=== PATIENT | female | born 1955 | race Caucasian/White ===

== ENCOUNTER 2021-07-06 10:30 | Outpatient (REF) | payer MEDICARE, SELFPAY ==
[2021-07-06 12:36] LABS: Alanine Aminotransferase 45 U/L (0-31); Anion Gap 13 (12-20); Aspartate Amino Transferase 29 U/L (5-31); Blood Urea Nitrogen 24 mg/dL (9-16); Carbon Dioxide 26 mmol/L (22-29); Chloride 104 mmol/L (96-108); Estimated Glomerular Filt Rate > 60; Potassium 4.4 mmol/L (3.3-5.1); Sodium 139 mmol/L (135-145)
== END 2021-07-06 10:31 | disposition home or self-care (01) ==
LOC: HO.LAB 10:30
PROVIDERS: PCP Family Medicine; Visit Provider Family Medicine
DX: I10 Essential (primary) hypertension (principal); E78.00 Pure hypercholesterolemia, unspecified; Z79.899 Other long term (current) drug therapy
CPT/HCPCS: 36415; 80051; 82550; 82565; 84450; 84460; 84520

== ENCOUNTER 2022-05-08 09:56 | Outpatient (REF) | payer MEDICARE, SELFPAY ==
--- NOTE | ~2022-05-08 | XR_ITS ---
EXAMINATION: XR SINUSES CLINICAL INFORMATION: Sinusitis COMPARISON: None TECHNIQUE: 3 views of the sinuses were obtained. FINDINGS: Paranasal sinuses appear clear without air-fluid levels. No fractures are identified. No radiodense foreign bodies. XR/XR sinus min 3V IMPRESSION: Unremarkable sinus examination.
== END 2022-05-08 09:57 | disposition home or self-care (01) ==
LOC: HO.XRAY 09:56
PROVIDERS: PCP Family Medicine; Visit Provider Otolaryngology
DX: J32.9 Chronic sinusitis, unspecified (principal)
CPT/HCPCS: 70220

== ENCOUNTER 2023-06-09 08:09 | Outpatient (REF) | payer MEDICARE, SELFPAY ==
[2023-06-09 09:23] LABS: Alanine Aminotransferase 90 U/L (0-31); Anion Gap 15 (12-20); Aspartate Amino Transferase 53 U/L (5-31); Carbon Dioxide 26 mmol/L (22-29); Chloride 105 mmol/L (96-108); Cholesterol 190 mg/dL (<200); Estimated Glomerular Filt Rate > 60; Glucose Fasting 130 mg/dL (60-99); HDL Cholesterol 51 mg/dL (>40); LDL Cholesterol Calculated 109 mg/dL (<100); Potassium 4.3 mmol/L (3.3-5.1); Sodium 142 mmol/L (135-145); Triglycerides 154 mg/dL (<150)
== END 2023-06-09 08:10 | disposition home or self-care (01) ==
LOC: HO.LAB 08:09
PROVIDERS: PCP Family Medicine; Visit Provider Family Medicine
DX: I10 Essential (primary) hypertension (principal); E78.00 Pure hypercholesterolemia, unspecified; Z79.899 Other long term (current) drug therapy; Z83.3 Family history of diabetes mellitus
CPT/HCPCS: 36415; 80051; 80061; 82550; 82565; 82947; 84450; 84460

== ENCOUNTER 2023-07-07 08:56 | Outpatient (REF) | payer MEDICARE, SELFPAY ==
[2023-07-07 09:20] LABS: Estimated Average Glucose 123 mg/dL; Hemoglobin A1c % 5.9 % (<6.0)
[2023-07-07 09:37] LABS: Glucose Fasting 122 mg/dL (60-99)
== END 2023-07-07 08:57 | disposition home or self-care (01) ==
LOC: HO.LAB 08:56
PROVIDERS: PCP Family Medicine; Visit Provider Family Medicine
DX: R73.9 Hyperglycemia, unspecified (principal)
CPT/HCPCS: 36415; 82947; 83036

== ENCOUNTER 2024-11-17 09:00 | Outpatient (AMB) | payer MEDICARE, SELFPAY ==
--- NOTE | 2024-11-17 09:04 | MHC.PC.OV ---
Vital Signs 11/17/24 09:10 Height 5 ft 3.5 in Weight 98.43 kg BMI 37.8 BP 128/82 Respiration 16 Pulse 88 Pulse Source Pulse Oximeter Temp 96.6 F L Temp Source Temporal Artery Scan Pulse Oximetry (%) 97 Oxygen Delivery Method Room Air Intake Visit Reasons: 5 MO F/UP - WILY PT - see comments Warper Fixer Required: No Accompanied by: Self / Same As Patient Allergies cephalexin (Keflex) Allergy (Unknown, Verified 11/17/24 09:05) redness and itching Medication List - Last Reconciled 11/17/24 by CRISTI Cancino atenolol 50 mg PO BID atorvastatin 20 mg PO BEDTIME cetirizine (Zyrtec) 10 mg PO DAILY PRN citalopram 40 mg PO DAILY tirzepatide (Mounjaro) 2.5 mg (0.5 mL) subcut QWEEK Tobacco use date assessed: 11/17/24 Fall risk assessment: 1 Fall in past year Last assessed Fall Risk: 11/17/24 Dental Screening Dental Screen Date: 11/17/24 Did you have a dental visit in the last 12 months?: Yes Did you have a dental problem in the last 6 months where you did not have access to dental care?: No Was dental information given to patient?: No HPI HPI Comments History of Present Illness Details 69-year-old female with history of hypertension, hypercholesterolemia, venous insufficiency, major depressive disorder, prediabetes, obesity presents to the office today for management of chronic conditions and to establish care. Hypertension-on atenolol 50 mg twice daily. Blood pressure in the office 128/82 HLD- on atorvastatin. Due for lipid panel MDD- r/t menopause per patient. Symptoms recur time to time. On citalopran 40mg, good management of Venous insufficiency-well managed Prediabetes-last A1c 5.9% Concerns: Obesity- using weight watchers but has difficulty with planning due to work, picking up grandchildrens, and helping with sister. Eats a lot of chicken and fish but does skip meals. Difficulty with walking due to low back ache. Low back strain- r/t posture. Has mechanical fall last week, no strike. No weakness, radiculopathy. No bowel/bladder dysfunction Health maintenance: S/p bilateral mastectomy-no longer undergoing mammograms Overdue for screening colonoscopy-last 2013 with 10 year follow-up advised. Dr. Hale Overdue for DEXA scan ROS: see hpi EXAM: Constitutional - Awake and Alert, No apparent distress Eyes - PERRL Cardiovascular - S1S2, RRR, No edema Respiratory - Normal lung expansion, Normal respiratory effort, No respiratory distress, CTA bilaterally Extremities - no calf tenderness bilaterally, no swelling Skin - Warm/Dry Neurological - Alert & oriented x3 Psychological - Appropriate affect PFSH Medical History (Updated 11/17/24 @ 09:37 by CRISTI Cancino) Obesity MDD (major depressive disorder) Venous insufficiency HLD (hyperlipidemia) Prediabetes HTN (hypertension) Surgical History (Updated 11/17/24 @ 09:30 by CRISTI Cancino) S/P appendectomy H/O section S/P bilateral mastectomy Family History (Updated 11/17/24 @ 09:30 by CRISTI Cancino) Sister Alzheimer dementia Breast cancer Mother Breast cancer Father CAD (coronary artery disease) COPD (chronic obstructive pulmonary disease) Social History Housing: House Patient Tobacco Use Status: Never used Tobacco e-Cigarette/Vaping Use: Never Used service: No Current occupational status: employed (second time worker) and retired Cognitive needs: No Hearing needs: No Vision needs: No Questionnaire PHQ-9 Over the last 2 weeks, how often have you been bothered by any of the following problems? 1. Little interest or pleasure in doing things: not at all 2. Feeling down, depressed, or hopeless: not at all 3. Trouble falling or staying asleep, or sleeping too much: several days 4. Feeling tired or having little energy: several days 5. Poor appetite or overeating: not at all 6. Feeling bad about yourself - or that you are a failure or have let yourself or your family down: not at all 7. Trouble concentrating on things, such as reading the newspaper or watching television: not at all 8. Moving or speaking so slowly that other people could have noticed. Or the opposite - being so fidgety or restless that you have been moving around a lot more than usual: not at all 9. Thoughts that you would be better off or of hurting yourself in some way: not at all Total score: 2 Source: Developed by Drs. Josiah Torres, Reymundo Loredo and colleagues, with an educational bautista from [employer]. Thrive Questionnaire Date Thrive assessed: 11/17/24 I am a: Patient What is your living situation today?: I have a steady place to live Within the past 12 months, did the food you bought not last and you didn't have the money to get more?: Never true Within the past 12 months, did you worry whether your food would run out before you got money to buy more?: Never true Do you have trouble paying for medicines?: No Do you have trouble getting transportation to medical appointments?: No Do you have trouble paying your heating and electricity bill?: No Do you have trouble taking care of your child, family member or friend?: No Do you have trouble with day-to-day activities such as bathing, preparing meals, shopping, managing finances, etc.?: No Are you currently unemployed and looking for a job?: No Are you interested in more education?: No Please select the resources that you would like help with: None THRIVE Score: 0 RENÉE-7 AMB Questionnaire RENÉE-7 Date RENÉE - 7 assessed: 11/17/24 Feeling nervous, anxious, or on edge: 0 = Not at all Not being able to stop or control worryin = Not at all Worrying too much about different things: 0 = Not at all Trouble relaxin = Not at all Being so restless that it is hard to sit still: 0 = Not at all Becoming easily annoyed or irritable: 0 = Not at all Feeling afraid as if something awful might happen: 0 = Not at all Total RENÉE-7 score (0-4 normal; 5-9 mild; 10-14 moderate; 15-21 severe): 0 Source: Developed by Drs. Josiah Torres, Reymundo Loredo and colleagues, with an educational bautista from [employer]. Physical exam (Primary Care) Vital Signs: Last Vital Signs Temp 96.6 F L 11/17/24 09:10 Pulse 88 11/17/24 09:10 Resp 16 11/17/24 09:10 BP 128/82 11/17/24 09:10 Pulse Ox 97 11/17/24 09:10 Oxygen Delivery Method Room Air 11/17/24 09:10 BMI result Body Mass Index 37.8 Tobacco/Smoking Status: Tobacco use Status Tobacco use date assessed 11/17/24 11/17/24 09:13 Patient Tobacco Use Status Never used Tobacco 11/17/24 09:13 e-Cigarette/Vaping Use Never Used 11/17/24 09:13 PHQ-9: PHQ-9 Score PHQ-9: Total score 2 11/17/24 09:26 Thrive Assessment: Date of Thrive Assessment Date Thrive assessed 11/17/24 11/17/24 09:16 Coding Level of Care Code New Pt Level 4 (30280) Complex EM visit Add On G2211 Diagnoses HTN (hypertension) I10 Prediabetes R73.03 HLD (hyperlipidemia) E78.5 MDD (major depressive disorder) F32.9 Obesity E66.9 Low back strain S39.012A Assessment & Plan Assessment & Plan (1) HTN (hypertension): Code(s): I10 - Essential (primary) hypertension Category: Medical Plan: Controlled. Continue atenolol 50 mg twice daily low-sodium diet (2) Prediabetes: Code(s): R73.03 - Prediabetes Category: Medical Plan: Recheck hemoglobin A1c. Weight loss efforts recommended and discussed (3) HLD (hyperlipidemia): Code(s): E78.5 - Hyperlipidemia, unspecified Category: Medical Plan: Lipid panel ordered. Continue atorvastatin (4) MDD (major depressive disorder): Code(s): F32.9 - Major depressive disorder, single episode, unspecified Category: Medical Plan: Stable. Continue citalopram 40 mg daily. No alarm symptoms (5) Obesity: Code(s): E66.9 - Obesity, unspecified Category: Medical Plan: Weight loss efforts encouraged. Discussed healthy diet with emphasis on increased protein, fruits, vegetables and limiting refined sugars, simple carbohydrates, and highly processed foods. Recommend regular cardiovascular and weight-bearing exercise with recommendation for 150 minutes of moderate intensity exercise weekly. She is referred to weight management and will trial tirzepatide. Counseled on side effects. (6) Low back strain: Code(s): S39.012A - Strain of muscle, fascia and tendon of lower back, initial encounter Category: Medical Plan: Recommend gentle [id number] exercises. Can use ibuprofen or Tylenol as well as topical analgesics. Ice or heat as tolerated. Referred to physical therapy Plan Follow-up in the office in 4 months. Labs to be completed following visit today. Orders: Orders Lipid Panel Today E66.9 - Obesity, unspecified, E78.5 - Hyperlipidemia, unspecified, F32.9 - Major depressive disorder, single episode, unspecified, I10 - Essential (primary) hypertension, I87.2 - Venous insufficiency (chronic) (peripheral), R73.03 - Prediabetes Liver Panel Today E66.9 - Obesity, unspecified, E78.5 - Hyperlipidemia, unspecified, F32.9 - Major depressive disorder, single episode, unspecified, I10 - Essential (primary) hypertension, I87.2 - Venous insufficiency (chronic) (peripheral), R73.03 - Prediabetes PT Evaluation and Treatment Today S39.012A - Strain of muscle, fascia and tendon of lower back, initial encounter Basic Metabolic Panel Today E66.9 - Obesity, unspecified, E78.5 - Hyperlipidemia, unspecified, F32.9 - Major depressive disorder, single episode, unspecified, I10 - Essential (primary) hypertension, I87.2 - Venous insufficiency (chronic) (peripheral), R73.03 - Prediabetes Complete Blood Count Auto Diff Today E66.9 - Obesity, unspecified, E78.5 - Hyperlipidemia, unspecified, F32.9 - Major depressive disorder, single episode, unspecified, I10 - Essential (primary) hypertension, I87.2 - Venous insufficiency (chronic) (peripheral), R73.03 - Prediabetes TSH reflex Free T4 Today E66.9 - Obesity, unspecified, E78.5 - Hyperlipidemia, unspecified, F32.9 - Major depressive disorder, single episode, unspecified, I10 - Essential (primary) hypertension, I87.2 - Venous insufficiency (chronic) (peripheral), R73.03 - Prediabetes XR DEXA axial skeleton Today M89.8X9 - Other specified disorders of bone, unspecified site, Z78.0 - Asymptomatic menopausal state Referrals Gastroenterology Referral Z12.11 - Encounter for screening for malignant neoplasm of colon Medical Weight Management Referral E66.9 - Obesity, unspecified Medications: New tirzepatide (Mounjaro) for 4 weeks 2.5 mg (0.5 mL) subcut QWEEK 2 mL 0RF E66.9 - Obesity, unspecified, E78.5 - Hyperlipidemia, unspecified, I10 - Essential (primary) hypertension, R73.03 - Prediabetes
[2024-11-17 09:10] VITALS: BP 128/82; PULSE 88; RESP 16; TEMP 35.9; O2SAT 97; BMI 37.8
--- OUTSIDE RECORDS SUMMARY | 2024-11-17 10:12 | XMS_ITS | Clinical Summary ---
Author Organization [facility] Address [address] [place] [address] Care Team Providers Care Ball Mill Mixer Name Role Phone Leticia Guerra Primary Care Provider [phone] Allergies Active Allergy Reactions Criticality Noted Date Comments Cephalexin 10/09/2018 Medications Medication Sig Dispensed Refills Start Date End Date Status omeprazole (PriLOSEC) 20 MG capsule Take 20 mg by mouth daily. 0 Active atenolol (TENORMIN) tablet 50 mg Take 50 mg by mouth daily. 0 Active citalopram (CeleXA) 20 MG tablet Take 20 mg by mouth daily. 0 Active letrozole (FEMARA) 2.5 MG tablet Take 2.5 mg by mouth daily. 0 Active atorvastatin (LIPITOR) tablet 20 mg Take 20 mg by mouth daily. 0 Active Multiple Vitamins-Minerals (MULTI COMPLETE PO) Take by mouth. 0 A ctive vitamin E 400 UNIT capsule Take 400 Units by mouth daily. 0 Active Active Problems No known active problems Social History Tobacco Use Types Packs/Day Years Used Date Smoking Tobacco: Never Assessed Sex and Gender Information Value Date Recorded Sex Assigned at Not on file Gender Identity Not on file Sexual Orientation Not on file Last Filed Vital Signs Vital Sign Reading Time Taken Comments Blood Pressure 142/79 12/07/2020 9:23 AM EDT Pulse 77 12/07/2020 9:23 AM EDT Temperature 36.7 C (98.1 F) 12/07/2020 9:23 AM EDT Respiratory Rate - - Oxygen Saturation 95% 12/07/2020 9:23 AM EDT Inhaled Oxygen Concentration - - Weight 94.3 kg (208 lb) 12/07/2020 9:23 AM EDT Height 160 cm (5' 3 ) 12/07/2020 9:23 AM EDT Body Mass Index 36.85 12/07/2020 9:23 AM EDT Plan of Treatment Health Maintenance Due Date Last Done Comments Hepatitis C Screening 1955 COVID-19 Vaccine (#1) 05/09/1956 Depression Screening 1967 Preventative Health Evaluation 11/09/1973 DTap / Tdap / Td (1 - Tdap) 11/09/1974 Colon Cancer Screening (Colonoscopy) 11/09/2000 Breast Cancer Screening (Mammogram) 11/09/2005 Shingrix-Zoster Vaccine (1 o f 2) 11/09/2005 Fall Risk Assessment 11/09/2020 Osteoporosis Screening (DEXA Scan) 11/09/2020 Pneumococcal Vaccine (1 of 1 - PCV) 11/09/2020 Influenza Vaccine (#1) 2024 0, 12/10/2018 RSV Adult > 60+ Yrs or (1 - 1-dose 75+ series) 11/09/2030 Hepatitis B Vaccines Aged Out No long er eligible based on patient's age to complete this topic RSV Ped < 20 months Aged Out No longe r eligible based on patient's age to complete this topic Care Teams [employer]er Relationship Specialty Start Date End Date Leticia Guerra PA [address] [phone] PCP - General Medical Services 11/18/19
== END 2024-11-17 09:42 | disposition home or self-care (01) ==
LOC: HO.HMCHD 09:01
PROVIDERS: PCP Family Medicine; Visit Provider Physician Assistant
DX: I10 Essential (primary) hypertension (principal); R73.03 Prediabetes; E78.5 Hyperlipidemia, unspecified; F32.9 Major depressive disorder, single episode, unspecified; E66.9 Obesity, unspecified; S39.012A Strain of muscle, fascia and tendon of lower back, initial encounter

== ENCOUNTER → 2024-11-17 09:00 | Outpatient (BNVA) | payer MEDICARE, SELFPAY | PROVIDERS: PCP Family Medicine; Visit Provider Physician Assistant | DX: Z76.89 Persons encountering health services in other specified circumstances (principal); I10 Essential (primary) hypertension; R73.03 Prediabetes; E78.5 Hyperlipidemia, unspecified; F32.9 Major depressive disorder, single episode, unspecified; E66.9 Obesity, unspecified; Z68.37 Body mass index [BMI] 37.0-37.9, adult; I87.2 Venous insufficiency (chronic) (peripheral); Z79.899 Other long term (current) drug therapy; Z13.39 Encounter for screening examination for other mental health and behavioral disorders; Z13.30 Encounter for screening examination for mental health and behavioral disorders, unspecified | CPT/HCPCS: 96127; 99202 ==

== ENCOUNTER 2024-12-26 12:47 | Outpatient (REF) | payer MEDICARE, SELFPAY ==
--- NOTE | ~2024-12-26 | MM_ITS ---
EXAMINATION: DXA BONE DENSITY AXIAL HISTORY: Z78.0 - Asymptomatic menopausal state TECHNIQUE: [place] Dual energy absorptiometry (DEXA) of the lumbar spine, total left hip, and femoral neck was performed. COMPARISON: There are no prior studies for comparison. FINDINGS: The bone mineral density of the lumbar spine is 1.353 g/cm2, corresponding to a T-score of 1.4, and a Z-score of 2.1. This is indicative of normal bone mineral density. The bone mineral density of the left total hip is 1.130 g/cm2, corresponding to a T-score of 1.0, and a Z-score of 1.7. This is indicative of normal bone mineral density. The bone mineral density of the left femoral neck is 0.988 g/cm2, corresponding to a T-score of -0.4, and a Z-score of 0.6. This is indicative of normal bone mineral density. FRACTURE RISK: The FRAX index suggests a risk of major osteoporotic fracture of 7.0%, and of hip fracture 0.4%. MM/XR DEXA axial skeleton IMPRESSION: Based on bone mineral density, and according to World Health Organization (WHO) criteria, the diagnosis is consistent with normal bone mineral density. Statistically, 68% of repeat scans fall within 1 SD (+/- 0.010 g/cm2 for AP spine L1-L4) and 1 SD (+/- 0.012 g/cm2 for femur total) FRAX is a trademark of the [employer] Met[employer], a World Health Organization (WHO) Collaborating Center. Electronically signed by: Josiah Sawyer MD 12/26/2024 01:18 PM EDT
--- OUTSIDE RECORDS SUMMARY | 2024-12-26 15:09 | XMS_ITS | Data Portability ---
Author Organization [facility], Main Office Address [address] [place] [address] Care Team Providers Care Arrow Point Attacher Name Role Phone LETICAI MAGANA Primary Care Provider LU WAYNE Custodial Foreman [phone] MALCOLM MCDONNELL Surfacer Operator CYNTHIA CONNER Medical Oncologist [phone] SHERI MORROW Aromatherapist Assessment No assessment recorded. Plan of Treatment Reminders Order Date Submit Date Provider Last Modified By Organization Details Last Modified Time Details Appointments None recorded. Lab HbA1c (hemoglobi n A1c), blood 2019 020 [facility], [address], [place] , [place], [address], 0 14:01:32 lipid panel, serum 2019 020 [facility], [address], [place] [address], [place], [address], 0 13:49:00 vitamin D, 25-hydroxy , total, serum 2019 020 [facility], [address], [place] , [place], [address], 0 13:54:[address]/dietiti an referral 2019 020 [email or web address] Not available 0 14:13:00 Procedures None recorded. Surgeries None recorded. Imaging None recorded. Medication Orders citalopram 20 mg tablet 2019 [id number], [address] [place], [address], 0 13:35:55 atorvastat in 20 mg tablet 2019 [id number], [address] [place], [address], 0 13:35:55 omeprazole 20 mg capsule,de layed release 2019 [id number], [address] [place], [address], 0 14:21:29 fluticason e propionate 50 mcg/actuat ion nasal spray,susp ension 2019 [id number], [address] [place], [address], 0 13:52:21 furosemide 20 mg tablet 2019 [id number], [address] [place], [address], 0 14:00:56 Patient TargetsNo targets recorded. Patient Instructions Encounter Date Encounter Id Patient Instructions Last Modified By Organization Details Last Modified Time 10/21/2019 [id number] depression treatment: care instructions Not available 10/21/2019 14:17:00 prediabetes: car e instructions Not available 10/21/2019 14:19:53 eating healthy foods: care instructions Not available 10/21/2019 14:19:53 high cholesterol : care instructions Not available 10/21/2019 14:19:53 heart-healthy di et: care instructions Not available 10/21/2019 14:19:53 high-fiber diet: care instructions Not available 10/21/2019 14:19:53 statins: care instructions Not available 10/21/2019 14:19:53 gastroesophageal reflux disease (GERD): care instructions Not available 10/21/2019 13:50:21 hiatal hernia: c are instructions Not available 10/21/2019 13:51:22 gastroesophageal reflux disease (GERD): care instructions Not available 10/21/2019 13:51:22 high blood press ure: care instructions Not available 10/21/2019 14:17:13 dash diet: care instructions Not available 10/21/2019 14:17:13 Starting a Weight-Loss Plan: Care Instructions Not available 10/21/2019 13:46:22 Nutrition Referr al and Weight Management Follow-up Information Not available 10/21/2019 13:46:22 Reason for Referral Construction Equipment Mechanic/dietitian Refer ral for Body mass index 30+ - obesity Referring Physician: Leticia Magana, Internal Medicine, Encounter Date: 10/21/2019 Problems Name Problem SNOMED Code Status Onset Date Resolution Date Notes Provider Name and Address Organization Details Recorded Time Hyperchol esterolem ia 14054611 Active Not Available [facility] 09:25:41 Tachycard ia 4396429 Active Not Available [facility] 09:25:41 Gastroeso phageal reflux disease 169521697 Active Not Available [facility] 09:25:41 Depressiv e disorder 44105309 Completed 10/21/2019 Leticia Magana PA-C [address], [facility] [place], [address] , [facility] 0 13:28:10 Allergic rhinitis 48118128 Active Not Available [facility] 09:25:41 Malignant melanoma of lower limb 700967816 Active upper thigh Not Available [facility] 09:25:41 Primary malignant neoplasm of breast 040820994 Active right Not Available [facility] 09:25:41 Excision of bilateral breasts Active Not Available [facility] 09:25:41 Essential hypertens ion 80898295 Active 2019 Not Available [facility] 10/26/202 1 09:25:41 Recurrent major depressio n in partial remission 19135893 Active 2019 Not Available [facility] 1 09:25:41 Ductal carcinoma in situ of breast 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 Active 2019 Not Available [facility] 1 09:25:41 Sliding hiatus hernia 311710601 Active 2019 Not Available [facility] 1 09:25:41 Malignant melanoma of lower limb 976661287 Active 2019 Not Available [facility] 1 09:25:41 Venous stasis edema of bilateral lower limbs 86410901019 255869 Active 2019 Not Available [facility] 1 09:25:41 Seasonal allergic rhinitis 107002956 Active 2019 [facility] Available [facility] 09:25:41 Vitamin D deficienc y 33142401 Active 2019 Not Available [facility] 1 09:25:41 Edema of lower extremity 685398318 Active 2019 Not Available [facility] 1 09:25:41 Prediabet es 401852106 Active 2019 Not Available [facility] 1 09:25:41 Obesity 657632609 Active 2019 Not Available [facility] 1 09:25:41 Problem Notes None recorded. Procedures Surgical History Date Name Laterality Status Provider Name and Address Organization Details Recorded Time 8 Most Recent Bone Density completed Celeste Hendricks [facility] 05/13/2019 13:03:05 8 Dxa bone density zehra vrt fx completed Celeste Hendricks [facility] 05/13/2019 13:02:56 4 Date of Last Colonoscopy completed [place] [facility] 10/21/2019 13:28:57 4 colonoscopy completed Yanira Choudhary [facility]PP[facility] 05/13/2019 15:23:21 excision of bilateral breasts completed [place] [facility] 10/21/2019 13:19:56 Imaging Results None recorded. Procedure Notes None recorded. Medical Equipment None Reported. Allergies Allergen ID Allergen Name Allergen Category Reaction Reaction Severity Criticality Documentation Date Start Date Code Code System Note Provider Name and Address Organization Details Recorded Time 71900 Keflex medicatio n other Not available Not available 10/21/2019 46376 7 RxNorm facia l flush ing and burni ng [place] [facility] 0 13:14:04 24817 cephalexi n medicatio n Not available Not available Not available 10/21/20192018 2231 RxNorm Yanira Choudhary [facility] 0 13:57:38 Medications Name Sig Start Date Stop Date Status Note LastModified by Organization Details LastModified Time atorvastati n 20 mg tablet TAKE 1 TABLET BY MOUTH EVERY DAY IN THE EVENING active Not Available Not Available No t Available Zyrtec 10 mg tablet Take 1 tablet every day by oral route. active Not Available Not Available No t Available citalopram 20 mg tablet TAKE 1 TABLET BY MOUTH EVERY DAY active Not Available Not Available No t Available lansoprazol e 30 mg capsule,del ayed release Take 1 capsule every day by oral route for 90 days. 2019 active Not Available Not Available Not Avai lable omeprazole 20 mg capsule,del ayed release Take 1 capsule every day by oral route for 90 days. 10/20 completed Not Available Not Available Not Available furosemide 20 mg tablet TAKE 1 TABLET BY MOUTH EVERY DAY NEEDED 2019 active Not Available Not Available Not Avai lable fluticasone propionate 50 mcg/actuati on nasal spray,suspe nsion Honeydew 2 sprays every day by intranasa l route for 30 days. 2019 active Not Available Not Available Not Avai lable atenolol 50 mg tablet TAKE 2 TABLETS BY MOUTH EVERY DAY active Not Available Not Available No t Available vitamin E 268 mg (400 unit) capsule Take 1 capsule every day by oral route. active Not Available Not Available No t Available esomeprazol e magnesium DR 20 mg granules delayed release for susp Please specify direction s, refills and quantity active Not Available Not Available No t Available One-A-Day Women's 50 Plus 400 mcg-20 mcg tablet Take 1 tablet every day by oral route. active Not Available Not Available No t Available Vitals Date Recorded Body height Body mass index (BMI) Body weight Heart rate Oxygen saturation Oxygen saturation in Arterial blood by Pulse oximetry Body temperature Systolic And Diastolic Provider Name and Address Organization Details Last Updated DateTime 0 160.66 cm 37.4 kg/m2 70236.1 7 g 71 /min 96 % 96 % 96.98 [degF] 134/85 mm[Hg] [place] [facility] 0 13:25:14 Social History Question Answer Notes LastModified by Organizat ion Details LastModified Time Tobacco Smoking Status [facility]2019 13:21:15 Do You Have An Advance Directive? Yes Information not available 10/21/2019 What Is Your Level Of Caffeine Consumption? Moderate 1-2 Cups Information not available 10/21/2019 How Much Tobacco Do You Chew? None Information not available 10/21/2019 In The 14 Days Before Symptom Onset, Have You Had Close Contact With A Laboratory-confir med COVID-19 While That Case Was Ill? No Information not available 10/21/2019 In The 14 Days Before Symptom Onset, Have You Had Close Contact With A Person Who Is Under Investigation For COVID-19 While That Person Was Ill? No Information not available 10/21/2019 Have You Been To An Area Known To Be High Risk For COVID-19? No Information not available 10/21/2019 What Type Of Diet Are You Following? REGULAR Information not available 10/21/2019 Which Illicit Or Recreational Drugs Have You Used? None Information not available 10/21/2019 Do You Take Precautions To Prevent Distracted Driving? No Information not available 10/21/2019 How Often Do You Need To Have Someone Help You When You Read Instructions, Pamphlets, Or Other Written Material From Your Doctor Or Pharmacy? Never Information not available 10/21/2019 Have You Served In The ? No Information not available 10/21/2019 Have You Or Anyone In Your Household Had Any Of The Following Symptoms In The Last 14 Days: Sore Throat, Cough, Chills, Body Aches For Unknown Reasons, Shortness Of Breath For Unknown Reasons, Loss Of Smell, Loss Of Taste, Fever At Or Greater Than 100 Degrees Fahrenheit? No Information not available 10/21/2019 Are You Or Anyone In Your Household A Health Care Provider Or Emergency Responder? No Information not available 10/21/2019 To The Best Of Your Knowledge Have You Been In Close Proximity To Any Individual Who Tested Positive For COVID-19? No Information not available 10/21/2019 What Was The Date Of Your Most Recent Tobacco Screening? 10/21/2019 Information not available 10/21/2019 How Many Children Do You Have? 2 Information not available 10/21/2019 Seat Belts Used Routinely Yes Information not available 10/21/2019 Smoke Alarm In Home Yes Information not available 10/21/2019 At What Age Did You Start Smoking Tobacco? 20 A Few Years Information not available 10/21/2019 Are You Passively Exposed To Smoke? No Information no t available 10/21/2019 How Much Tobacco Do You Smoke? 1 PPW Information not available 10/21/2019 Sex: Unknown Functional Status Question Answer Note LastModified by Organizat ion Details LastModified Time What is your level of alcohol consumption? Occasional Information not available 10/21/2019 Do you or have you ever used smokeless tobacco? Never used smokeless tobacco Information not available 10/21/2019 Are you currently employed? Yes part-time Information not available 10/21/2019 Are you able to care for yourself independently ? 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 Never used electronic cigarettes Information not available 10/21/2019 What is your exercise level? Occasional walking Information not available 10/21/2019 Mental Status None recorded. Family History Relationship Description Onset Age of this Age Resolved Age Notes LastModified by Organization Details LastModified Time Mother Malignant melanoma of skin nose [email or web address] s Not available 10/21/2019 13:18:41 Mother Malignant neoplasm of female breast [email or web address] s Not available 10/21/2019 13:18:58 Medical History No medical history recorded. Gynecological History Statement/Question Response Date of Last Colonoscopy 09/17/2013 Most Recent Mammogram Most Recent Bone Density 09/14/2017 Obstetrics History GPAL:G 0 P 0 0 0 0 Immunizations Vaccine Type Date Status Note Provider Nam e and Address Organization Details Recorded Time Influenza, high-dose, trivalent, PF 12/10/2018 completed Lisaskinny Ludwig null, [facility] 01/04/2021 14:24:19 Influenza, recombinant, quadrivalent, PF 12/14/2019 completed Lisa Ludwig null, [facility] 01/04/2021 14:24:19 Influenza, adjuvanted, quadrivalent, PF 01/02/2021 completed Lisa Ludwig null, [facility] 01/04/2021 14:24:19 Past Encounters Encounter ID Performer Location Encounter Start Date Encounter Closed Date Diagnosis/Indication Diagnosis SNOMED-CT Code Diagnosis ICD10 Code Diagnosis IMO Codes Diagnosis Note [id number] Addi Patel MD Main Office [address] [facility] [address] [place] [address] 10/21/2019 12:45:46 10/21/2019 14:13:00 Recurrent major depression in partial remission 94758580 F33.41 stable on current meds. Essential hypertension 21430075 I10 stable on current medication . Hypercholesterolemia 136 90048 E78.00 repeat fasting labs. Malignant melanoma of lower limb 629153704 C49.20 f/u with dermatolog y Venous sta sis edema of bilateral lower limbs 1455454262 1512714 I87.2 start Lasix 20 mg . take for 3 days as needed. Labs as requested. educe sodium and elevate extermitie s as discussed. Body mass index 30+ - obesity 485174167 Z68.37 Hiatal hernia 32735671 K 44.9 Gastroesop hageal reflux disease 012416940 K21.9 Continue PPI Seasonal a llergic rhinitis 739379127 J30.2 continue zyrtec Vitamin D deficiency 347 49932 E55.9 continue supplement s. Edema of l ower extremity 219576532 R60.0 Prediabetes 612811867 R7 3.03 repeat fasting glucose and A1c Obesity 677622510 E66.9 Health Concerns Section Related Observation LastModified by Organization Detai ls LastModified Time None Recorded Concern Status LastModified by Organization Details LastModified Time None Recorded Advance Directives Directive Y: Payers Insurance Date Sequence Insurance Name Policy Number Policy Ann Covered Member ID Ann Member ID Guarantor Name 03/14/2020 1 [employer] (EPO) [id number] Zi Navas [id number] Tamara Navas Notes Date Note Type Note Provider Name and Address Organization Details Recorded Time 10/21/2019 text/html ROS as noted in the HPI 63 year old female for new patient physical.Pt. sees [facility] yearly and has no h/o abnormal Pap Smears.Pt. had bilateral mastectomy due to invasive carcinoma of the L. breast diagnosed 2011.Vaccines: pt. needs Tdap. Had Zostavax.Last colonoscopy was in 2013 , recall 01 years.Malignant melanoma L. leg. Sees Dr. Mcdonnell yearly. Diagnosed in 2010. Did not need any treatment.HTN is stable. Pt. was started on Atenolol 50 mg for sinus tachycardia. It was increased couple of months ago to 100 mg daily due to BP going up.Obesity, BMI is over 37. Job is sedentary. EXercise is insufficient. Pt. is on weight watchers diet, but is inconsistent.NOnsm oker. ETOH-- once per week up to 2 drinks.Hiatal hernia and GERD are stable on PPI.Major depression in partial remission. PHQ-9 is 4 on citalopram 20 mg.Hyperlipidemia. Last labs with still elevated lipids. atorvastatin was raised to 20 mg. NO repeat labs were [place] as of yet.Vit D deficiency . Pt. is on supplements. Christi Saucedo null, [facility] 10/21/2019 15:46:48 OBGyn Episode No OBEpisode recorded.
--- OUTSIDE RECORDS SUMMARY | 2024-12-26 15:09 | XMS_ITS | Clinical Summary ---
Author Organization [facility] Address [address] [place] [address] Care Team Providers Care Computer Engineering Technician Name Role Phone Leticia Guerra Primary Care Provider [phone] Allergies Active Allergy Reactions Criticality Noted Date [...] age to complete this topic Care Teams Computer Engineering Technician Relationship Specialty Start Date End Date Leticia Guerra PA [address] [address] PCP - General Medical Services 11/18/19
== END 2024-12-26 12:48 | disposition home or self-care (01) ==
LOC: HO.MAMMO 12:47
PROVIDERS: PCP Physician Assistant; Visit Provider Physician Assistant
DX: Z13.820 Encounter for screening for osteoporosis (principal); Z78.0 Asymptomatic menopausal state; M89.8X9 Other specified disorders of bone, unspecified site
CPT/HCPCS: 77080

== ENCOUNTER → 2024-12-26 13:00 | Outpatient (BNV) | payer MEDICARE, SELFPAY | PROVIDERS: PCP Physician Assistant; Visit Provider Radiology Diagnostic Radiology | DX: E28.39 Other primary ovarian failure (principal) | CPT/HCPCS: 77080 ==